=== PATIENT | male | born 1955 | race American Indian/Alaskan Native ===

== ENCOUNTER 2021-10-11 10:19 | Day surgery (SDC) | payer MEDICARE, OTHER ==
--- NOTE | 2021-10-15 10:17 | Electrophysiological Studies ---
DATE OF SERVICE: 10/11/2021 TYPE OF PROCEDURE: Fluoroscopy. DESCRIPTION OF PROCEDURE: The patient was brought to the [facility]. Fluoroscopy views were taken in the AP, FREEMAN, and YORUBA views. Visualization of the right ventricular lead appeared to be stable. There was no evidence of lead dislodgement. COMPLICATIONS: None. ASSESSMENT: No evidence of right atrial or right ventricular lead dislodgement. PLAN: The patient will follow up in the [facility]. TID: [id number] RECEIPT: [id number] AYUSH/PARAMJIT
== END 2021-10-11 10:20 | disposition home or self-care (01) ==
LOC: CATH 10:19 → CATHLABREC 10:19
PROVIDERS: ATTEND Internal Medicine Cardiovascular Disease
DX: I44.2 Atrioventricular block, complete (principal); R94.31 Abnormal electrocardiogram [ECG] [EKG]; I49.3 Ventricular premature depolarization; I10 Essential (primary) hypertension; I47.2 Ventricular tachycardia; I47.1 Supraventricular tachycardia; I25.3 Aneurysm of heart; I42.9 Cardiomyopathy, unspecified; Z79.899 Other long term (current) drug therapy; Z79.82 Long term (current) use of aspirin
CPT/HCPCS: 76000